=== PATIENT | female | born 1950 | race Caucasian/White ===

== ENCOUNTER 2016-11-21 12:05 | Inpatient (IN) | payer OTHER, MEDICARE ==
[2016-11-18 17:16] LABS: % IMMATURE GRANULYOCYTES 0.2 % (0.0-1.1); ABSOLUTE IMMATURE GRANULOCYTES 0.02 10^3/uL (0.00-0.10); ADD DIFF? NO; ADD MORPH? NO; ADD SCAN? NO; ATYPICAL LYMPHOCYTE FLAG 0 (0-99); FRAGMENT RBC FLAG 0 (0-99); HEMATOCRIT 46.2 % (38.0-47.0); HEMOGLOBIN 15.8 g/dL (12.6-16.3); LEFT SHIFT FLG 0 (0-99); LIPEMIA HEMOLYSIS FLAG 90 (0-99); MEAN CELL HEMOGLOBIN 30.7 pg (27.9-34.1); MEAN CELL HEMOGLOBIN CONCENTR. 34.2 g/dL (32.4-36.7); MEAN CELL VOLUME 89.7 fL (81.5-99.8); MEAN PLATELET VOLUME 10.4 fL (8.7-11.7); PLATELET CLUMPS FLAG 0 (0-99); PLATELET COUNT 319 10^3/uL (150-400); RED BLOOD CELL COUNT 5.15 10^6/uL (4.18-5.33); RED CELL DISTRIBUTION WIDTH 13.2 % (11.5-15.2)
--- NOTE | 2016-11-19 08:29 | CPEKG ---
Heart Rate: 81 RR Interval: 741 P-R Interval: 184 QRSD Interval: 86 QT Interval: 360 QTC Interval: 418 P Brayton: 72 QRS Brayton: 2 T Wave Brayton: 38 EKG Severity - NORMAL ECG - EKG Impression: SINUS RHYTHM Electronically Signed By: Gagandeep Perry 19-Nov-2016 18:13:25
[~2016-11-21 12:05] MED LIST: ACETAMINOPHEN 325 MG TAB PO ONE; CEFAZOLIN 2 GM/DEXTR 100 ML IV ONE; CHLORHEXIDINE GLUC HIBICLENS 118 ML BTL TP ONE; DEXAMETHASONE 4 MG/ML VIAL IVP ONE; FAMOTIDINE 20 MG TAB PO ONE; ROPI/epiNEPH/KETOROLAC JOINT COCKTAIL IU ONE; SKIN ADHESIVE (DERMABOND) 1 EACH TP ONE; TRANEXAMIC ACID 3,000 MG in NS 50 ML IRR ONE; TRANEXAMIC ACID 3,000 MG/50 ML BAG IRR ONE; VANCOMYCIN 1 GM VIAL IV ONE
[2016-11-21] MEDS ORDERED: ACETAMINOPHEN 325 MG TAB ONE (12:45)
[2016-11-21] MEDS ORDERED: DEXAMETHASONE 4 MG/ML VIAL ONE (12:45)
[2016-11-21] MEDS ORDERED: FAMOTIDINE 20 MG TAB ONE (12:45)
[2016-11-21] MEDS ORDERED: CEFAZOLIN 2 GM/DEXTROSE/100 ML BAG IV ONE (12:46)
[2016-11-21] MEDS ORDERED: MIDAZOLAM 2 MG/2 ML VIAL ONE (14:02)
[2016-11-21] MEDS ORDERED: PROPOFOL/EMULSION 500 MG/50 ML BOTTLE IV ONE (14:11)
[2016-11-21] MEDS ORDERED: PROPOFOL 200 MG/20 ML VIAL ONE (15:23)
[2016-11-21] MEDS ORDERED: clonIDINE 1 MG/10 ML VIAL EP ONE (15:26)
[2016-11-21] MEDS ORDERED: ROPIVACAINE HCL 150 MG/30 ML INJ ONE (15:26)
[2016-11-21] MEDS ORDERED: ONDANSETRON 4 MG/2 ML VIAL IVP PRN (15:43)
[2016-11-21] MEDS ORDERED: POLYETHYLENE GLYCOL 3350 17 GM PKT PO PRN (15:43)
[2016-11-21] MEDS ORDERED: METOCLOPRAMIDE 10 MG/2 ML VIAL IVP PRN (15:43)
[2016-11-21] MEDS ORDERED: MAGNESIUM HYDROXIDE 30 ML UDCUP PO PRN (15:43)
[2016-11-21] MEDS ORDERED: BISACODYL 10 MG SUPP PR PRN (15:43)
[2016-11-21] MEDS ORDERED: LACTULOSE 20 GM/30 ML UDCUP PO PRN (15:43)
[2016-11-21] MEDS ORDERED: ONDANSETRON DISINTEGRATING 4 MG TAB PO PRN (15:43)
[2016-11-21] MEDS ORDERED: PROMETHAZINE HCL 25 MG SUPPR PR PRN (15:43)
[2016-11-21] MEDS ORDERED: diphenhydrAMINE 25 MG CAP PO PRN (15:43)
[2016-11-21] MEDS ORDERED: PHARMACY PAIN CONSULT 1 EA MISC PRN (15:43)
[2016-11-21] MEDS ORDERED: CYCLOBENZAPRINE 10 MG TAB PO PRN (15:43)
[2016-11-21] MEDS ORDERED: DIPHENOXYLATE/ATROPINE LOMOTIL 1 TAB PO PRN (15:43)
[2016-11-21] MEDS ORDERED: TEMAZEPAM 15 MG CAP PO PRN (15:43)
--- NOTE | 2016-11-21 15:43 | POSTOPPROG ---
Post Op Note Date of Operation: 11/21/16 Surgeon: Magdaleno Larson Optical Instrument Inspector: logan larson Anesthesiologist: dr. murcia Anesthesia: Spinal, Other (Specify) (adductor canal block) Pre-op Diagnosis: right knee OA Post-op Diagnosis: same Indication: right knee pain due to OA that failed conservative measures Procedure: R TKA Findings: severe knee OA Inf/Abcess present in the surg proc area at time of surgery?: No EBL: 50-100
[2016-11-21] MEDS ORDERED: LR 1,000 ML IV SCH (16:00)
[2016-11-21] MEDS: ACETAMINOPHEN 325 MG TAB PO SCH ×2 (19:12→23:36)
[2016-11-21] MEDS: SENNOSIDES/DOCUSATE SODIUM TAB PO SCH (19:59)
[2016-11-21] MEDS: ASPIRIN 325 MG TAB PO SCH (19:59)
[2016-11-21] MEDS: FAMOTIDINE 20 MG TAB PO SCH (20:01)
[2016-11-21] MEDS: oxyCODONE IR 5 MG TAB PO PRN (20:01)
[2016-11-21] MEDS ORDERED: traZODone 50 MG TAB PO SCH (21:00)
[2016-11-21] MEDS: ceFAZolin 2 GM/DEXTROSE 100 ML IV SCH (21:22)
[2016-11-22] MEDS: ceFAZolin 2 GM/DEXTROSE 100 ML IV SCH (05:05)
[2016-11-22] MEDS: ACETAMINOPHEN 325 MG TAB PO SCH ×2 (05:06→12:42)
[2016-11-22 05:29] LABS: HEMATOCRIT 37.2 % (38.0-47.0); HEMOGLOBIN 13.2 g/dL (12.6-16.3)
[2016-11-22 09:11] VITALS: BP 164/68; PULSE 91; RESP 18; TEMP 98.1; O2SAT 95
[2016-11-22] MEDS: SENNOSIDES/DOCUSATE SODIUM TAB PO SCH (09:33)
[2016-11-22] MEDS: FAMOTIDINE 20 MG TAB PO SCH (09:33)
[2016-11-22] MEDS: ASPIRIN 325 MG TAB PO SCH (09:33)
[2016-11-22] MEDS: oxyCODONE IR 5 MG TAB PO PRN ×2 (09:33→12:42)
--- NOTE | 2016-11-22 09:50 | SOAPPROG ---
SOAP Progress Note Assessment/Plan: Assessment: Kaitlyn is doing well POD 1 s/p R TKA 1. pain management: pain is well controlled on oral pain meds 2. VTEppx: recommend ASA 325mg daily for 3 weeks. rec BEAU and SCDs 3. Anemia: level expected initially postop, asymptomatic 4. D/c planning: recommend d/c to home pending release from PT today. Plan: 11/22/16 09:48 Subjective: Kaitlyn is doing well today, denies SOB, chest pain and N/V. Objective: Vital Signs Temp Pulse Resp BP Pulse Ox 36.7 C 91 18 164/68 H 95 11/22/16 09:10 11/22/16 09:10 11/22/16 09:10 11/22/16 09:10 11/22/16 09:10 Laboratory Results 11/22/16 05:05 11/21/16 11/22/16 11/23/16 05:59 05:59 05:59 Intake Total 1840 Output Total 2120 600 Balance -280 -600 RLE: incision dressing is clean and dry, NVI, +pf/df ICD10 Worksheet Patient Problems: Problems Problem Status Onset Primary localized osteoarthritis of right knee Acute
--- NOTE | 2016-11-22 11:06 | GDS ---
[f rep st] DISCHARGE SUMMARY ADMISSION DIAGNOSIS: Right knee osteoarthritis. DISCHARGE DIAGNOSIS: Right knee osteoarthritis. PROCEDURE: Right total knee arthroplasty. VTE PROPHYLAXIS: Aspirin recommended 3 weeks daily. BRIEF DESCRIPTION OF HOSPITAL STAY: Patient was admitted for an elective joint arthroplasty. The p atient tolerated the procedure well and has passed physical therapy. The patient was given appropri ate antibiotic prophylaxis and venous thromboembolism prophylaxis. The patient's pain was well cont rolled on oral pain medication, patient was holding down food, and had urinated. Decision was made to discharge the patient. The patient was given post-operative prescriptions pre-operatively. PLAN: Please follow up in Dr. Rai's office December 11, at 3:15 p.m. /[id number]/MODL
--- NOTE | 2016-11-22 11:16 | GOP ---
[f rep st] OPERATIVE REPORT DATE OF OPERATION: 11/21/2016 SURGEON: Ynes Rai MD AUDIT INTERN: SAFIA Carmona ANESTHESIA: Spinal. PREOPERATIVE DIAGNOSIS: Right knee osteoarthritis. POSTOPERATIVE DIAGNOSIS: Right knee osteoarthritis. PROCEDURE PERFORMED: Right total knee arthroplasty. FINDINGS: ESTIMATED BLOOD LOSS: 30 mL INDICATIONS: This is a 66-year-old female with severe and progressive pain and deformity of the rig ht knee unresponsive to conservative care. Risks and benefits of the surgical intervention were exp lained in detail. DESCRIPTION OF PROCEDURE: The patient was brought to the operative room and placed on the table in the supine position. Spinal anesthesia was induced without difficulty. A pneumatic tourniquet was applied about the right proximal thigh, and the leg was prepped and draped in a sterile fashion. Th e leg hopkins was applied. After exsanguination by elevation the tourniquet was inflated to 275 mm o f mercury. Incision was made anterior medial from the tibial tuberosity to a point 2 cm proximal to the superio r pole of the patella. Medial parapatellar arthrotomy was carried out from the superior pole of the patella and posteriorly in line with the fibers of the Type II VMO. The medial collateral ligament was elevated and the infrapatellar fat pad was resected. The patella was everted and the articular surface was excised. A 32 mm patellar button was placed. The distal femoral guide hole was drilled and the 6-degree alignment maya was placed. A 10 mm distal femoral cut was made without difficulty. Attention was turned to the tibia and a standard 9 mm cut based on the tibial condyle was performed. The tibial articular surface was excised without difficulty. Attention was turned back to the femur and a size 3 Triathlon femoral cutting block was positioned. Anterior, posterior, and chamfer cuts were made, followed by the intercondylar box cut. The knee was extended and the remnants of the medial and lateral meniscus were excised. The posteri or capsule was injected with ropivacaine, epinephrine and Toradol. A size 3 MIS mini-keel tibial tr ay was positioned. Trial reduction was then carried out. There was excellent range of motion, alig nment, and stability using the 13 mm polyethylene. All trials were then removed. The joint was thoroughly irrigated and carefully dried. Two packages of cement and 2 grams of vancomycin were mixed in the vacuum mixer and placed on the fixation surfa mack of all surfaces of the components. The components were implanted and all excess cement was thor oughly removed. The permanent 13 mm polyethylene was placed without difficulty. The tourniquet was deflated and all bleeders were coagulated. The wound was thoroughly irrigated an d closed using interrupted sutures of 2-0 Vicryl for the joint capsule. The subcu was closed with 3 -0 Vicryl and the skin with 4-0 Monocryl. Dermabond and Steri-Strips were applied followed by a com pressive dressing. The patient was then moved from the operating room to the recovery room in good condition, having tolerated the procedure well. /[id number]/MODL
== END 2016-11-22 12:52 | disposition home or self-care (01) | DRG 470 ==
LOC: F3N 12:05
PROVIDERS: ADMIT Orthopaedic Surgery; ATTEND Orthopaedic Surgery
PROC: 0SRC0J9 Replacement of Right Knee Joint with Synthetic Substitute, Cemented, Open Approach (ICD-10-PCS; principal; 2016-11-21 14:15)
DX: M17.11 Unilateral primary osteoarthritis, right knee (principal); Z87.891 Personal history of nicotine dependence; E66.3 Overweight
CPT/HCPCS: 97116-GP; 97161-GP; 97165-GO; C1713; G8978-GP-CI; G8979-GP-CI; G8980-GP-CI; G8987-GO-CI; G8988-GO-CI; G8989-GO-CI; J0171; J0690; J0735; J1100; J1885; J2250; J2704; J2795; J3370

== ENCOUNTER 2018-05-28 08:00 | Inpatient (IN) | payer OTHER, MEDICARE ==
--- NOTE | 2018-05-28 06:13 | PDHPUP ---
History & Physical Update H&P update statement: This history and physical update is based on an assessment of the patient which was completed after admission or registration (within 24 hours), but prior to the surgery/procedure. H&P update: H&P reviewed & patient examined, no change in patient's condition since H&P completed
[~2018-05-28 08:00] MED LIST changes: -ACETAMINOPHEN 325 MG TAB PO ONE; -CEFAZOLIN 2 GM/DEXTR 100 ML IV ONE; -CHLORHEXIDINE GLUC HIBICLENS 118 ML BTL TP ONE; -DEXAMETHASONE 4 MG/ML VIAL IVP ONE; -FAMOTIDINE 20 MG TAB PO ONE; -ROPI/epiNEPH/KETOROLAC JOINT COCKTAIL IU ONE; +ROPIVACAINE 0.2% 80 MG, EPINEPHrine 0.2 MG, KETOROLAC TROMETHAMINE 30 MG in SYRINGE 0 ML IU ONE; -SKIN ADHESIVE (DERMABOND) 1 EACH TP ONE; +TRANEXAMIC ACID 3,000 MG in NS (SYRINGE) 50 ML IRR ONE; -TRANEXAMIC ACID 3,000 MG in NS 50 ML IRR ONE; -VANCOMYCIN 1 GM VIAL IV ONE
[2018-05-28] MEDS ORDERED: ACETAMINOPHEN 325 MG TAB PO ONE (08:42)
[2018-05-28] MEDS ORDERED: DEXAMETHASONE 4 MG/ML VIAL IVP ONE (08:42)
[2018-05-28] MEDS ORDERED: LR 1,000 ML IV ONE (08:42)
[2018-05-28] MEDS ORDERED: FAMOTIDINE 20 MG TAB PO ONE (08:42)
[2018-05-28] MEDS ORDERED: ceFAZolin 2 GM/DEXTROSE 100 ML IV ONE (08:42)
[2018-05-28] MEDS ORDERED: VANCOMYCIN 1 GM VIAL ONE (09:09)
[2018-05-28] MEDS ORDERED: MIDAZOLAM 2 MG/2 ML VIAL ONE (10:00)
[2018-05-28] MEDS ORDERED: MIDAZOLAM 2 MG/2 ML VIAL IVP ONE (10:03)
--- NOTE | 2018-05-28 10:04 | PDANEPAE ---
ANE Past Medical History - Cardiovascular History Hx Hypertension: No Hx Arrhythmias: No Hx Chest Pain: No Hx Coronary Artery / Peripheral Vascular Disease: No Hx CHF / Valvular Disease: No Hx Palpitations: No Cardiovascular History Comment: white coat syndrome - Pulmonary History Hx COPD: No Hx Asthma/Reactive Airway Disease: No Hx Recent Upper Respiratory Infection: No Hx Oxygen in Use at Home: No Hx Sleep Apnea: No Sleep Apnea Screening Result - Last Documented: Negative - Neurologic History Hx Cerebrovascular Accident: No Hx Seizures: No Hx Dementia: No Neurologic History Comment: problems with muscles seizing and tighting up- anesthesiologist did not want to spinal with - Endocrine History Hx Diabetes: No - Renal History Hx Renal Disorders: Yes Renal History Comment: hx of uti's LAST 10/2016 - Liver History Hx Hepatic Disorders: No - Neurological & Psychiatric Hx Hx Neurological and Psychiatric Disorders: Yes Neurological / Psychiatric History Comment: anxiety - Cancer History Hx Cancer: No - Congenital Disorder History Hx Congenital Disorders: No - GI History Hx Gastrointestinal Disorders: No - Other Health History Other Health History: wears reading glasses. eczema - Chronic Pain History Chronic Pain: Yes (LT KNEE) - Surgical History Prior Surgeries: RT TOTAL KNEE 10/2016. . perineal cyst removed 22 yrs ago ANE Review of Systems Review of Systems: - Exercise capacity METS (RN): 4 METS ANE Patient History - Allergies Allergies/Adverse Reactions: ciprofloxacin [From Cipro] Allergy (Severe, Verified 11/13/16 13:50) TENDON DAMAGE ciprofloxacin HCl [From Cipro] Allergy (Severe, Verified 11/13/16 13:50) TENDON DAMAGE aspirin [From Percodan] Allergy (Verified 11/13/16 13:51) Other-Enter Comments bacitracin [From Neosporin ([id number])] Allergy (Verified 11/13/16 13:50) Rash bacitracin zinc [From Neosporin ([id number]-[id number])] Allergy (Verified 11/13/16 13: 50) Rash codeine Allergy (Verified 11/13/16 13:50) PASSED OUT neomycin Allergy (Verified 11/13/16 13:50) Rash neomycin sulfate [From Neosporin (wit-jch-[id number])] Allergy (Verified 11/13/16 13: 50) Rash oxycodone HCl [From Percodan] Allergy (Verified 11/13/16 13:51) Other-Enter Comments oxycodone terephthalate [From Percodan] Allergy (Verified 05/06/18 14:29) HYPERACTIVE/GI ISSUES polymyxin B [From Neosporin (tzi-[id number]-dvbor)] Allergy (Verified 11/13/16 13:50) Rash - Home Medications Home Medications: traZODone [traZODONE 50MG (*)] 25 mg PO HS 11/12/15 [Last Taken 05/27/18] Multivitamins [Multivitamin (*)] 1 each PO DAILY 11/11/16 [Last Taken 05/21/18] Estradiol DAILY 05/06/18 [Last Taken 05/21/18] Herbals/Supplements -Info Only DAILY 05/06/18 [Last Taken 05/21/18] Ibuprofen BID 05/06/18 [Last Taken 05/21/18] medroxyPROGESTERone DAILY 05/06/18 [Last Taken 05/21/18] - NPO status NPO Since - Liquids (Date): 05/28/18 NPO Since - Liquids (Time): 09:00 NPO Since - Solids (Date): 05/27/18 NPO Since - Solids (Time): 20:00 - Smoking Hx Smoking Status: Former smoker - Family Anes Hx Family Hx Anesthesia Complications: none ANE Labs/Vital Signs - Vital Signs Blood Pressure: 170/77 Heart Rate: 87 Respiratory Rate: 86 O2 Sat (%): 95 Height: 161.29 cm Weight: 68.039 kg ANE Physical Exam - Airway Neck exam: decreased ROM Mallampati Score: Class 1 Mouth exam: normal dental/mouth exam - Pulmonary Pulmonary: no respiratory distress - Cardiovascular Cardiovascular: regular rate and rhythym - ASA Status ASA Status: II ANE Anesthesia Plan Anesthesia Plan: spinal Regional Anesthesia: adductor canal FNB
[2018-05-28] MEDS ORDERED: fentaNYL 100 MCG/2 ML INJ ONE (10:10)
[2018-05-28] MEDS ORDERED: PROPOFOL/EMULSION 500 MG/50 ML BOTTLE IV ONE ×2 (10:22→11:04)
[2018-05-28] MEDS ORDERED: LR 500 ML IV PRN (11:30)
[2018-05-28] MEDS ORDERED: ONDANSETRON 4 MG/2 ML VIAL IVP PRN ×2 (11:30→11:49)
[2018-05-28] MEDS ORDERED: fentaNYL 100 MCG/2 ML INJ IVP PRN (11:30)
[2018-05-28] MEDS ORDERED: NALOXONE HCL 0.4 MG/ML INJ IVP PRN (11:30)
[2018-05-28] MEDS ORDERED: BUPIVACAINE/DEXTROSE 7.5MG/ML 2 ML SPINAL AMP SP ONE (11:47)
[2018-05-28] MEDS ORDERED: LIDOCAINE 2% 2 ML INJ ONE (11:47)
--- NOTE | 2018-05-28 11:48 | POSTOPPROG ---
Post Op Note Date of Operation: 05/28/18 Surgeon: [facility]dal[facility] Attendant: logan larson Anesthesiologist: dr. ibarra Anesthesia: Spinal, Other (Specify) (adductor canal block) Pre-op Diagnosis: left knee OA Post-op Diagnosis: same Indication: L knee pain Procedure: L TKA Findings: severe knee OA Inf/Abcess present in the surg proc area at time of surgery?: No EBL: 50-100
[2018-05-28] MEDS ORDERED: diphenhydrAMINE 25 MG CAP PO PRN (11:49)
[2018-05-28] MEDS ORDERED: DIPHENOXYLATE/ATROPINE LOMOTIL 1 TAB PO PRN (11:49)
[2018-05-28] MEDS ORDERED: ROPIVACAINE HCL 150 MG/30 ML INJ ONE (11:49)
[2018-05-28] MEDS ORDERED: ONDANSETRON DISINTEGRATING 4 MG TAB PO PRN (11:49)
[2018-05-28] MEDS ORDERED: TEMAZEPAM 15 MG CAP PO PRN (11:49)
[2018-05-28] MEDS ORDERED: LACTULOSE 20 GM/30 ML UDCUP PO PRN (11:49)
[2018-05-28] MEDS ORDERED: MAGNESIUM HYDROXIDE 30 ML UDCUP PO PRN (11:49)
[2018-05-28] MEDS ORDERED: PROMETHAZINE HCL 25 MG SUPPR PR PRN (11:49)
[2018-05-28] MEDS ORDERED: METOCLOPRAMIDE 10 MG/2 ML VIAL IVP PRN (11:49)
[2018-05-28] MEDS ORDERED: POLYETHYLENE GLYCOL 3350 17 GM PKT PO PRN (11:49)
[2018-05-28] MEDS ORDERED: PROMETHAZINE HCL 25 MG/ML INJ IVP PRN (11:49)
[2018-05-28] MEDS ORDERED: BISACODYL 10 MG SUPP PR PRN (11:49)
[2018-05-28] MEDS ORDERED: HYDROmorphONE/DILAUDID 2 MG TAB PO PRN (11:49)
[2018-05-28] MEDS ORDERED: LR 1,000 ML IV SCH (12:00)
--- NOTE | 2018-05-28 12:20 | POSTANESTH ---
Post Anesthetic Evaluation Cardiovascular Status: Normal, Stable Respiratory Status: Normal, Stable Level of Consciousness/Mental Status: Can Participate in Eval Pain Control: Adequate, Prn Tx Ordered Nausea/Vomiting Control: Adequate, Prn Tx Ordered Complications Possibly Related to Anesthesia: None Noted
[2018-05-28] MEDS ORDERED: ACETAMINOPHEN 325 MG TAB ONE (12:42)
[2018-05-28] MEDS: ACETAMINOPHEN 325 MG TAB PO SCH ×3 (13:09→23:40)
--- NOTE | 2018-05-28 13:40 | PDMN ---
Medical Necessity Medical necessity: Pt meets IP criteria per PA; est los >2 mn s/p L TKA (cpt 77112) POD #0; requiring further monitoring, IVFs, IV antiemetics, pain management & therapy; comorbid advanced age, antalgic gait/ambulates w/walker, severe nausea w/narcotics; per order & H&P 05/28/18
[2018-05-28] MEDS: CYCLOBENZAPRINE 10 MG TAB PO PRN (16:14)
[2018-05-28] MEDS: ceFAZolin 2 GM/DEXTROSE 100 ML IV SCH (18:32)
[2018-05-28] MEDS: SENNOSIDES/DOCUSATE SODIUM TAB PO SCH (20:37)
[2018-05-28] MEDS: FAMOTIDINE 20 MG TAB PO SCH (20:37)
[2018-05-28] MEDS: ASPIRIN 81 MG CHEWABLE TAB PO SCH (20:37)
[2018-05-29] MEDS: ceFAZolin 2 GM/DEXTROSE 100 ML IV SCH (02:14)
[2018-05-29] MEDS: ACETAMINOPHEN 325 MG TAB PO SCH ×2 (05:30→11:19)
[2018-05-29] MEDS: CYCLOBENZAPRINE 10 MG TAB PO PRN (05:30)
[2018-05-29] MEDS: SENNOSIDES/DOCUSATE SODIUM TAB PO SCH (09:18)
[2018-05-29] MEDS: FAMOTIDINE 20 MG TAB PO SCH (09:18)
[2018-05-29] MEDS: ASPIRIN 81 MG CHEWABLE TAB PO SCH (09:18)
--- NOTE | 2018-05-29 10:49 | SOAPPROG ---
KENJI Progress Note Assessment/Plan: Assessment: patient is doing well s/p L TKA pain is well controlled on oral pain meds VTE ppx: recommend ASA 81 mg BID for 4 weeks D/c planning: d/c to home today once released from PT muscle spasm: flexeril alleviates pain, will send script to patient's pharmacy Plan: 05/29/18 10:48 05/29/18 10:49 Subjective: patient is doing well, denies SOB, chest pain and N/V Objective: Vital Signs Temp Pulse Resp BP Pulse Ox 36.9 C 81 18 153/66 H 97 05/29/18 08:00 05/29/18 08:00 05/29/18 08:00 05/29/18 08:00 05/29/18 08:00 Laboratory Results 05/29/18 04:25 05/28/18 05/29/18 05/30/18 05:59 05:59 05:59 Intake Total 1994 Output Total 4517 600 Balance -130 -600 RLE: incision dressing is clean and dry, NVI, +pf/df ICD10 Worksheet Patient Problems: Problems Problem Status Onset Primary localized osteoarthritis of left knee Acute Primary localized osteoarthritis of right knee Acute
[2018-05-29 11:57] VITALS: BP 155/67
--- NOTE | 2018-05-29 12:20 | ASMTLACE ---
PAWEL Length of stay for Answers: 1 day current admission Acuity / Level of Answers: Yes Care: Did the patient have an inpatient admission? Comorbidities - select Answers: Opioid dependence all that apply / Chronic pain # of Emergency department Answers: 0 visits in the last 6 months Social determinants Answers: Mental health diagnosis (anxiety, depression, pers onality disorders, etc.) Score: 11 Date Signed: 05/29/2018 12:20 PM Electronically Signed By:Tenisha Figueroa RN
--- NOTE | 2018-05-30 03:56 | GOP ---
DATE OF OPERATION: 05/28/2018 SURGEON: Ynes Rai MD ANTENNA MACHINE OPERATOR: SAFIA Carmona ANESTHESIA: Spinal. PREOPERATIVE DIAGNOSIS: Left knee osteoarthritis. POSTOPERATIVE DIAGNOSIS: Left knee osteoarthritis. PROCEDURE PERFORMED: Total knee arthroplasty. FINDINGS: INDICATIONS: This is a 68-year-old female with severe and progressive pain and deformity of the left knee unresponsive to conservative care. Risks and benefits of the surgical intervention were explai kathia in detail. DESCRIPTION OF PROCEDURE: The patient was brought to the operative room and placed on the table in t he supine position. Spinal anesthesia was induced without difficulty. A pneumatic tourniquet was ap plied about the left proximal thigh, and the leg was prepped and draped in a sterile fashion. The le g hopkins was applied. After exsanguination by elevation the tourniquet was inflated to 250 mm of roderick cury. Incision was made anterior medial from the tibial tuberosity to a point 2 cm proximal to the superior pole of the patella. Medial parapatellar arthrotomy was carried out from the superior pole of the p atella and posteriorly in line with the fibers of the Type II VMO. Pathology revealed severe medial and patellofemoral osteoarthritis. The medial collateral ligament was elevated and the infrapatellar fat pad was resected. The patella was everted and the articular surface was excised. A 32 mm patellar button was placed. T he distal femoral guide hole was drilled and the 6 degree alignment maya was placed. A 10 mm distal f emoral cut was made without difficulty. Attention was turned to the tibia and a standard 9 mm cut based on the lateral tibial condyle was per formed. The tibial articular surface was excised without difficulty. Attention was turned back to the femur and a size 3 femoral cutting block was positioned. Anterior, posterior, and chamfer cuts were made, followed by the intercondylar box cut. The knee was extended and the remnants of the medial and lateral meniscus were excised. The posterio r capsule was injected with ropivacaine, epinephrine and Toradol. A size 3 tibial tray was positione d. Trial reduction was then carried out. There was excellent range of motion, alignment, and stabil ity using the 9 mm polyethylene. All trials were then removed. The joint was thoroughly irrigated and carefully dried. Two packages of cement and 2 grams of vancomycin were mixed in the vacuum mixer and placed on the fixation surface s of all surfaces of the components. The components were implanted and all excess cement was thoroug hly removed. The permanent 9 mm polyethylene X3 was placed without difficulty. The tourniquet was deflated and all bleeders were coagulated. The wound was thoroughly irrigated and closed using interrupted sutures of 2-0 Vicryl for the joint capsule. The subcu was closed with 3-0 Vicryl and the skin with 4-0 Monocryl. Dermabond and Steri-Strips were applied followed by a compre ssive dressing. The patient was then moved from the operating room to the recovery room in good cond ition, having tolerated the procedure well. /[id number]/MODL
== END 2018-05-29 14:09 | disposition home or self-care (01) | DRG 470 ==
LOC: F3E 08:18 → OBSVTOIN 11:52 → F3N 13:30
PROVIDERS: ADMIT Orthopaedic Surgery; ATTEND Orthopaedic Surgery
PROC: 0SRD0J9 Replacement of Left Knee Joint with Synthetic Substitute, Cemented, Open Approach (ICD-10-PCS; principal; 2018-05-28 10:00)
DX: M17.12 Unilateral primary osteoarthritis, left knee (principal); Z96.651 Presence of right artificial knee joint; Z23 Encounter for immunization
CPT/HCPCS: 97110-GP; 97116-GP; 97161-GP; 97530-GP; C1713; G0008; G8978-GP-CJ; G8979-GP-CI; G8980-GP-CI; J0171; J0690; J1100; J1885; J2250; J2550; J2704; J2795; J3010; J3370